=== PATIENT | male | born 1955 ===

== ENCOUNTER 2018-07-01 17:05 | Emergency (ER) | payer OTHER, SELFPAY ==
[2018-07-01 17:05] VITALS: BMI 22.6
[2018-07-01 17:13] VITALS: O2SAT 97
--- NOTE | 2018-07-01 17:20 | ED PDOC ---
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 Pt cleaned the wound with hydrogen peroxide. Today, he developed minimal pain, swelling, redness and warmth to the area. Denies fever, chills, chest pain, inability to move the hand, bleeding, numbness or tingling. Time/Duration: 24 hours Symptom Onset: Sudden Symptom Course: Worsening Associated Symptoms (Text): 07/01/18 19:59 redness, swelling, warmth <Bridger Younger - Last Filed: 07/01/18 19:59> - General Chief Complaint: Abnormal Skin Integrity Time Seen by Provider: 07/01/18 17:05 Past Medical History - Provider Review Nursing Documentation Reviewed: Yes - Infectious Disease Hx of Infectious Diseases: None - Tetanus Immunization Tetanus Immunization: Unknown - Cardiac Hx Cardiac Disorders: No - Pulmonary Hx Respiratory Disorders: No - Neurological Hx Neurological Disorder: No - HEENT Hx HEENT Disorder: No - Renal Hx Renal Disorder: No - Endocrine/Metabolic Hx Endocrine Disorders: No - Hematological/Oncological Hx Blood Disorders: No - Integumentary Hx Dermatological Disorder: No - Musculoskeletal/Rheumatological Hx Musculoskeletal Disorders: Yes Hx Fractures: Yes - Gastrointestinal Hx Gastrointestinal Disorders: No - Genitourinary/Gynecological Hx Genitourinary Disorders: No - Psychiatric Hx Psychophysiologic Disorder: No Hx Substance Use: No - Surgical History Hx Orthopedic Surgery: Yes - Suicidal Assessment Feels Threatened In Home Enviroment: No <Bridger Younger - Last Filed: 07/01/18 19:59> Family/Social History - Physician Review Nursing Documentation Reviewed: Yes Family/Social History: Unknown Family HX Smoking Status: Never Smoked Hx Alcohol Use: No Hx Substance Use: No Hx Substance Use Treatment: No <Bridger Younger - Last Filed: 07/01/18 19:59> Allergies/Home Meds <Vern Currie - Last Filed: 07/01/18 19:56> <Bridger Younger - Last Filed: 07/01/18 19:59> Allergies/Adverse Reactions: Allergies No Known Allergies Allergy (Verified 03/15/13 19:19) Review of Systems - Review of Systems Constitutional: Normal Eyes: Normal Cardiovascular: Normal Gastrointestinal: Normal Skin: Other (hand pain, swelling, redness and warmth) Endocrine: Normal <Bridger Younger - Last Filed: 07/01/18 19:59> Physical Exam Vital Signs Temp Pulse Resp BP Pulse Ox 07/01/18 17:08 98.3 F 87 16 147/74 97 <Vern Currie - Last Filed: 07/01/18 19:56> Vital Signs Reviewed: Yes Vital Signs Temp Pulse Resp BP Pulse Ox 07/01/18 17:08 98.3 F 87 16 147/74 97 Temperature: Afebrile Blood Pressure: Normal Pulse: Regular Respiratory Rate: Normal Appearance: Positive for: Well-Appearing, Non-Toxic, Comfortable Pain Distress: None Mental Status: Positive for: Alert and Oriented X 3 - Systems Exam Head: Present: Atraumatic, Normocephalic Pupils: Present: PERRL Extroacular Muscles: Present: EOMI Conjunctiva: Present: Normal Mouth: Present: Moist Mucous Membranes Neck: Present: Normal Range of Motion Respiratory/Chest: Present: Clear to Auscultation, Good Air Exchange. No: Respiratory Distress, Accessory Muscle Use Cardiovascular: Present: Regular Rate and Rhythm, Normal S1, S2. No: Murmurs Abdomen: No: Tenderness, Distention, Peritoneal Signs Back: Present: Normal Inspection Upper Extremity: Present: Normal Inspection, NORMAL PULSES, Swelling, Erythema, Neurovascularly Intact, Capillary Refill < 2s. No: Tenderness ((+) 1 mm circular superficial puncture wound with dried blood to the third right MCP, with 2cm x2cm area of minimal erythema, warmth, swelling. Nontender; neurovascularly intact. No debris. No induration or fluctuance.) Lower Extremity: Present: Normal Inspection. No: Edema Neurological: Present: GCS=15, CN II-XII Intact, Speech Normal Skin: Present: Warm, Dry Psychiatric: Present: Alert <BabBridger moe - Last Filed: 07/01/18 19:59> Medical Decision Making ED Course and Treatment: 07/01/18 19:56 Impression: 62 year old male who presents to the emergency department with right hand pain. Patient Seen with Resident: In agreement with resident note which contains more details about the patient. Patient seen and evaluated with resident. Came up with plan and treatment together. - Medication Orders Current Medication Orders: Discontinued Medications Cephalexin Monohydrate (Keflex) 500 mg PO STAT STA; Protocol Stop: 07/01/18 17:50 Last Admin: 07/01/18 18:12 Dose: 500 mg Tetanus/Reduced Diphtheria/Acell Pertussis (Boostrix Vaccine Inj) 0.5 ml IM .ONCE ONE Stop: 07/01/18 17:36 Last Admin: 07/01/18 17:48 Dose: 0.5 ml Immunization Registry Document 07/01/18 17:48 (Rec: 07/01/18 17:48 [id number]) [facility]-Date provided 07/01/18 <Vern Currie - Last Filed: 07/01/18 19:56> ED Course and Treatment: 07/01/18 17:42 Pt presents with minimal pain, swelling, redness after superficial puncture wound with small nail yesterday Tetanus is not up to date Will give boostrix IM, Cephalexin 500 mg PO. Will write prescription for Cephalexin Pt instructed to return to the ED should the pain, swelling or redness increase. Pt agrees and understands discharge plan. <Bridger Younger - Last Filed: 07/01/18 19:59> - Scribe Statement The provider has reviewed the documentation as recorded by the Asya Velásquez Provider Scribe Attestation: All medical record entries made by the Asya were at my direction and personally dictated by me. I have reviewed the chart and agree that the record accurately reflects my personal performance of the history, physical exam, medical decision making, and the department course for this patient. I have also personally directed, reviewed, and agree with the discharge instructions and disposition. <Vern Currie - Last Filed: 07/01/18 19:56> Disposition/Present on Arrival <Vern Currie - Last Filed: 07/01/18 19:56> - Present on Arrival Any Indicators Present on Arrival: No History of DVT/PE: No History of Uncontrolled Diabetes: No Urinary Catheter: No History of Decub. Ulcer: No History Surgical Site Infection Following: None - Disposition Have Diagnosis and Disposition been Completed?: Yes Disposition Time: 17:45 Patient Plan: Discharge <Bridger Younger - Last Filed: 07/01/18 19:59> - Disposition Diagnosis: Puncture wound, hand Disposition: HOME/ ROUTINE Patient Problems: Current Active Problems Problem Status Onset Puncture wound, hand Acute Condition: STABLE Discharge Instructions (ExitCare): Wound Care Print Language: YI Additional Instructions: Return for any problems or concerns especially fever greater than 100.4, worsening redness, worsening pain, worsening swelling, red streaks extending up the hand or arm. ANDREZ Mulligan, thank you for letting us take care of you today. Your provider was Dr. Vern Currie and you were treated for HAND INJURY. The emergency medical care you received today was directed at your acute symptoms. If you were prescribed any medication, please fill it and take as directed. It may take several days for your symptoms to resolve. Return to the Emergency Department if your symptoms worsen, do not improve, or if you have any other problems. Please contact your doctor or call one of the physicians/clinics you have been referred to that are listed on the Patient Visit Information form that is included in your discharge packet. Bring any paperwork you were given at discharge with you along with any medications you are taking to your follow up visit. Our treatment cannot replace ongoing medical care by a primary care provider outside of the emergency department. Thank you for allowing the [facility] team to be part of your care today. If you had an X-Ray or CT scan: A Radiologist will review the ED reading if any change in treatment is needed we will contact you. If you had a blood, urine, or wound culture: It will take several days for the results, if any change in treatment is needed we will contact you. If you had an STI test: It will take 48 hours for the results. Please call after 1 week if you have not heard back. Prescriptions: Cephalexin [Keflex] 500 mg PO QID #20 capsule Referrals: Amira Van MD [Medical Doctor] - Follow up with primary Forms: [employer] (Rwandan)
[2018-07-01] MEDS ORDERED: TDAP Vaccine 0.5 mL Syr IM ONE (17:35)
[2018-07-02 00:06] VITALS: BP 138/67; PULSE 80; RESP 18; TEMP 98.6
== END 2018-07-01 18:19 | disposition home or self-care (01) ==
LOC: ED 17:05
DX: S61.431A Puncture wound without foreign body of right hand, initial encounter (principal); W45.0XXA Nail entering through skin, initial encounter; Y93.H3 Activity, building and construction; Y92.89 Other specified places as the place of occurrence of the external cause; Y99.0 Civilian activity done for income or pay; Z23 Encounter for immunization